=== PATIENT | male | born 1970 | race Caucasian/White ===

== ENCOUNTER 2023-06-01 08:07 | Outpatient (REF) | payer OTHER, SELFPAY ==
--- NOTE | 2023-06-01 08:15 | SKI_PTH ---
PATIENT: Aristeo Moore LOC: [facility] U#:[id number] AGE/SX: 53/M ROOM: RE06/01/[address]: VANNESA Bai : 1970 BED: DIS: 06/01/2023 SPEC #: [id number] RECD: 06/01/23 12:32 STATUS: CYDNEY REDanielle #: [id number] DAVID: 06/01/23 08:[address]: Lissett Quarles DEPT: Surgical Specimen RECD BY: Sybil Cabral ENTERED: 06/01/23 12:32 SP TYPE: ESTRELLA TORRES DR: Jorge A Dickens DO Tissues: 1 - SKIN BIOPSY(SHAVE/PUNCH) Procedures: SKIN LEVEL 4 Comments: [id number]
== END 2023-06-01 08:08 | disposition home or self-care (01) ==
LOC: LBN 08:07
PROVIDERS: PCP Family Medicine; Referring Provider Physical Therapy Assistant; Visit Provider Physical Therapy Assistant
DX: D18.09 Hemangioma of other sites (principal); L98.8 Other specified disorders of the skin and subcutaneous tissue
CPT/HCPCS: 88305

== ENCOUNTER 2024-01-26 12:28 | Outpatient (CLI) | payer OTHER, SELFPAY ==
[2024-01-26 10:37] LABS: Calculated LDL 252 mg/dL (<100); Cholesterol 336 mg/dL (<200); HDL Cholesterol 67 mg/dL (40-60); Triglyceride 89 mg/dL (<150)
== END 2024-01-26 12:29 | disposition home or self-care (01) ==
LOC: LBO 12:28
PROVIDERS: PCP Family Medicine; Visit Provider Family Medicine
DX: E78.5 Hyperlipidemia, unspecified (principal)
CPT/HCPCS: 36415; 80061

== ENCOUNTER 2025-02-01 04:18 | Outpatient (CLI) | payer OTHER, SELFPAY ==
[2025-02-01 07:50] LABS: Abs Immature Grans 0.03 10^3/uL (0.0-0.06); HCT 44.9 % (40.0-50.0); HGB 15.5 g/dL (13.5-17.5); Immature Grans % 0.7 %; MCH 29.5 pg (27.0-33.0); MCHC 34.5 % (32.0-36.0); MCV 85 fL (80-95); MPV 9.5 fL (8.0-11.0); Platelet Count 289 10^3/uL (130-400); RBC 5.26 10^6/uL (4.36-5.78); RDW 12.8 % (11.8-14.1); RDW-SD 39.8 fL; WBC 4.54 10^3/uL (4.4-10.8)
[2025-02-01 07:53] LABS: Glucose Negative (Negative)
[2025-02-01 08:58] LABS: Hemoglobin A1C 5.5 % (<5.7)
[2025-02-01 09:09] LABS: Anion Gap 11.4 mmol/L (3-11); BUN 19 mg/dL (7-18); CO2 26.6 mmol/L (21.0-32.0); Calcium 9.7 mg/dL (8.5-10.1); Calculated LDL 185 mg/dL (<100); Chloride 102 mmol/L (98-107); Cholesterol 249 mg/dL (<200); Estimated GFR 103.87 (mL/min/1.73m2); Glucose 97 mg/dL (74-106); HDL Cholesterol 48 mg/dL (>or=40); Potassium 3.8 mmol/L (3.5-5.1); Sodium 140 mmol/L (136-145); TSH 1.96 uIU/mL (0.36-3.74); Triglyceride 83 mg/dL (<150)
[2025-02-01 18:36] LABS: PSA, Screening 0.4 ng/mL (<=3.5)
== END 2025-02-01 04:19 | disposition home or self-care (01) ==
LOC: LBO 04:19
PROVIDERS: PCP Family Medicine; Visit Provider Family Medicine
DX: R73.9 Hyperglycemia, unspecified; Z12.5 Encounter for screening for malignant neoplasm of prostate
CPT/HCPCS: 36415; 80048; 80061; 84153; 81003; 83036; 84443; 85025